=== PATIENT | male | born 2000 | race Two or more races ===

== ENCOUNTER 2024-02-13 07:29 | Emergency (ER) | payer MEDICAID ==
[~2024-02-13] VITALS: Ht 162.6 cm; Wt 79.8 kg
[2024-02-13 07:42] VITALS: TEMP 98.2
[2024-02-13] MEDS ORDERED: BACI/NEOM/POLY B OINT PKT 1 UDPKT PACKET ONE (07:55)
[2024-02-13] MEDS ORDERED: TDAP [DIPH/PERTUSSIS/TET] 0.5 ML VIAL IM ONE (08:00)
[2024-02-13] MEDS: BACI/NEOM/POLY B OINT PKT 1 UDPKT PACKET TP ONE (08:02)
[2024-02-13] MEDS ORDERED: IBUP-1955 PO (08:11)
[2024-02-13] MEDS ORDERED: CYCL5TAB PO (08:11)
[2024-02-13 09:12] VITALS: BP 151/90; O2SAT 100
== END 2024-02-13 09:13 | disposition home or self-care (01) ==
LOC: ER 07:42
DX: S60.418A Abrasion of other finger, initial encounter (principal); S80.212A Abrasion, left knee, initial encounter; S80.211A Abrasion, right knee, initial encounter; Z79.899 Other long term (current) drug therapy; V89.2XXA Person injured in unspecified motor-vehicle accident, traffic, initial encounter; Y93.89 Activity, other specified; Y92.89 Other specified places as the place of occurrence of the external cause; Y99.8 Other external cause status
CPT/HCPCS: 73130-TC; 73564-TC